=== PATIENT | female | born 1970 | race Caucasian/White ===

== ENCOUNTER 2022-06-25 14:13 | Emergency (ER) | payer SELFPAY ==
[~2022-06-25] VITALS: Ht 167.6 cm; Wt 58.9 kg
[2022-06-25] MEDS ORDERED: ALBUTEROL SUL0.083 % IN (14:29)
[2022-06-25] MEDS ORDERED: MEDDOSEPAK PO (20:46)
[2022-06-25] MEDS ORDERED: PROAIR HFA IN (20:46)
[2022-06-25] MEDS ORDERED: ZYRTEC10 MG PO (20:46)
[2022-06-25 20:48] VITALS: BP 124/67
== END 2022-06-25 20:54 | disposition home or self-care (01) | DRG 203 ==
LOC: ED 14:13
DX: J45.909 Unspecified asthma, uncomplicated (principal); Z20.822 Contact with and (suspected) exposure to COVID-19

== ENCOUNTER 2024-05-07 15:06 | Emergency (ER) | payer SELFPAY ==
[~2024-05-07] VITALS: Ht 167.6 cm; Wt 58.0 kg
[2024-05-07] VITALS (13 sets, daily range): BP systolic 108–139; BP diastolic 54–74
[~2024-05-07 15:06] MED LIST: ALBUTEROL SUL0.083 % IN; LORTAB 5/3255 MG PO; MEDDOSEPAK PO; PREDNISONE50 MG PO; PROAIR HFA IN; STERAPRED DS10 MG PO; TRAMADOL HCL50 MG PO; VENTOLIN HFA108 MCG PO; ZPAK PO; ZYRTEC10 MG PO
[2024-05-07] MEDS ORDERED: ASPIRIN 81 MG/TAB PO ONE (15:40)
[2024-05-07] MEDS ORDERED: ACETAMINOPHEN 325 MG/TAB PO ONE (15:40)
[2024-05-07 15:41] LABS: BASO% 0.9 % (0-3); EOS% 1.4 % (0-8); HEMATOCRIT 36.8 % (37.0-47.0); HEMOGLOBIN 12.3 g/dl (12.0-16.0); IMMATURE GRANULOCYTES 0.1 % (0.0-5.0); LYMPH% 7.8 % (15-41); MEAN CELL VOLUME 90.4 fL CALC (80.0-100.0); MEAN CORPUSCULAR HGB 30.2 pG CALC (26.0-32.0); MEAN CORPUSCULAR HGB CONC 33.4 g/dL CAL (32.0-36.0); MONO% 23.8 % (2-13); NEUT# 4.57 thou/uL (2.00-7.15); RED BLOOD COUNT 4.07 mill/uL (4.20-5.60); RED CELL DISTRI WIDTH 12.7 % (11.5-15.5)
[2024-05-07 15:53] LABS: ALBUMIN 4.3 g/dL (3.2-5.0); ALKALINE PHOSPHATASE 66 u/l (38-126); ANION GAP 11 (6-22 (CALC)); BILIRUBIN, TOTAL 0.4 mg/dL (0.02-1.3); BUN 11 mg/dL (7-17); BUN/CREATININE RATIO 20 (12-20 (CALC)); CARBON DIOXIDE 22 mmol/l (22-30); CHLORIDE 105 mmol/l (95-108); CREATININE 0.6 mg/dL (0.5-1.0); ESTIMATED GFR 107 ML/MIN (>=90 (CALC)); POTASSIUM 3.2 mmol/l (3.5-5.1); SGOT/AST 26 u/l (14-36); SODIUM 135 mmol/l (137-146); TOTAL PROTEIN 6.9 g/dL (6.3-8.2)
[2024-05-07] MEDS ORDERED: POTASSIUM CHLORIDE 20 MEQ/TAB PO ONE (17:20)
[2024-05-07 17:59] LABS: URINE BILIRUBIN - DIPSTICK Negative (NEGATIVE); URINE BLOOD DIPSTICK Large (NEGATIVE); URINE GLUCOSE - DIPSTICK Negative (NEGATIVE); URINE KETONE Negative (NEGATIVE); URINE LEUK ESTERASE Negative (NEGATIVE); URINE NITRITE - DIPSTICK Negative (Negative); URINE PROTEIN - DIPSTICK Negative (NEG-TRACE); URINE UROBILINOGEN - DIPSTICK 0.2 E.U./dL (0.2)
[2024-05-07 18:00] LABS: URINE COLOR Yellow
[2024-05-07 18:07] LABS: URINE BACTERIA FEW hpf; URINE SQUAMOUS EPITHELIAL CELL FEW EPI/hpf (0-FEW); URINE WBC 0-2 WBC/hpf (0-5)
[2024-05-07] MEDS ORDERED: AZELASTINE HYDR1 SPR (18:34)
[2024-05-07] MEDS ORDERED: ZPAK PO (18:34)
[2024-05-07] MEDS ORDERED: BENZONATATE200 MG PO (18:34)
[2024-05-07] MEDS ORDERED: LEVOCETIRIZINE D5 MG PO (18:34)
[2024-05-07] MEDS ORDERED: predniSONE 20 MG/TAB PO ONE (18:45)
[2024-05-07] MEDS ORDERED: AZITHROMYCIN 250 MG/TAB PO ONE (18:45)
== END 2024-05-07 19:02 | disposition home or self-care (01) | DRG 153 ==
LOC: ED 15:06
PROVIDERS: Nurse Practitioner
DX: J06.9 Acute upper respiratory infection, unspecified (principal); J45.909 Unspecified asthma, uncomplicated; F17.200 Nicotine dependence, unspecified, uncomplicated; Z20.822 Contact with and (suspected) exposure to COVID-19

== ENCOUNTER 2024-07-28 23:41 | Emergency (ER) | payer SELFPAY ==
[~2024-07-28] VITALS: Ht 167.6 cm; Wt 56.2 kg
[~2024-07-28 23:41] MED LIST changes: +AZELASTINE HYDR1 SPR; +BENZONATATE200 MG PO; +LEVOCETIRIZINE D5 MG PO
[2024-07-28] MEDS ORDERED: FLUORESCEIN SODIUM 1 MG EA OU ONE (23:55)
[2024-07-28] MEDS ORDERED: TETRACAINE HCL 0.5 %/4 ML SOL OU ONE (23:55)
[2024-07-29] MEDS ORDERED: traMADol HCL 50 MG/TAB PO ONE (00:05)
[2024-07-29] MEDS ORDERED: DICLOFENAC SODIUM 75 MG/TAB PO ONE (00:05)
[2024-07-29] MEDS ORDERED: ACETAMINOPHEN 500 MG TAB PO ONE (00:05)
[2024-07-29] MEDS ORDERED: DOXYCYCLINE HYCLATE 100 MG/CAP PO ONE (00:05)
[2024-07-29] MEDS ORDERED: VIBRAMYCIN100 M2 PO (00:07)
[2024-07-29] MEDS ORDERED: TRAMADOL HYDROC50 M1 PO (00:07)
[2024-07-29 00:33] VITALS: BP 126/78
== END 2024-07-29 00:33 | disposition home or self-care (01) | DRG 603 ==
LOC: ED 23:41
DX: L03.213 Periorbital cellulitis (principal); J45.909 Unspecified asthma, uncomplicated; Z72.0 Tobacco use

== ENCOUNTER 2024-07-31 12:57 | Emergency (ER) | payer SELFPAY ==
[2024-07-31] VITALS (8 sets, daily range): BP systolic 120–156; BP diastolic 49–89
[~2024-07-31] VITALS: Ht 167.6 cm; Wt 54.0 kg
[~2024-07-31 12:57] MED LIST changes: +TRAMADOL HYDROC50 M1 PO; +VIBRAMYCIN100 M2 PO
[2024-07-31] MEDS ORDERED: HYDROmorphone HCL 2 MG/AMP IV ONE (13:50)
[2024-07-31] MEDS ORDERED: SODIUM CHLORIDE 0.9% 1,000 ML IV ONE (13:50)
[2024-07-31] MEDS ORDERED: ONDANSETRON HCl 4 MG/2 ML SDV IV ONE (13:50)
[2024-07-31] MEDS ORDERED: TETRACAINE HCL 0.5 %/4 ML SOL OS ONE (13:50)
[2024-07-31 14:29] LABS: BASO% 0.6 % (0-3); EOS% 1.8 % (0-8); HEMATOCRIT 39.2 % (37.0-47.0); HEMOGLOBIN 13.2 g/dl (12.0-16.0); IMMATURE GRANULOCYTES 0.2 % (0.0-5.0); LYMPH% 17.6 % (15-41); MEAN CELL VOLUME 90.3 fL CALC (80.0-100.0); MEAN CORPUSCULAR HGB 30.4 pG CALC (26.0-32.0); MEAN CORPUSCULAR HGB CONC 33.7 g/dL CAL (32.0-36.0); MONO% 10.4 % (2-13); NEUT# 7.04 thou/uL (2.00-7.15); NEUT% 69.4 % (42-76); RED BLOOD COUNT 4.34 mill/uL (4.20-5.60); RED CELL DISTRI WIDTH 12.2 % (11.5-15.5)
[2024-07-31] MEDS ORDERED: FLUORESCEIN SODIUM 1 MG EA OS ONE (14:40)
[2024-07-31] MEDS ORDERED: AMPICILLIN & SULBACTAM SODIUM 3 GM in SODIUM CHLORIDE 0.9% 100 ML IV ONE (14:40)
[2024-07-31 14:43] LABS: CREATININE 0.6 mg/dL (0.5-1.0); TOTAL PROTEIN 6.5 g/dL (6.3-8.2)
[2024-07-31 14:59] LABS: BILIRUBIN, TOTAL 0.6 mg/dL (0.02-1.3)
[2024-07-31] MEDS ORDERED: ACYCLOVIR SODIUM 1,000 MG VIAL IV ONE (15:05)
[2024-07-31] MEDS ORDERED: ACYCLOVIR SODIUM 500 MG in SODIUM CHLORIDE 0.9% 100 ML IV SCH (15:30)
[2024-07-31] MEDS ORDERED: KETOROLAC TROMETHAMINE 30 MG/ML SDV IV ONE (16:40)
[2024-07-31] MEDS ORDERED: HYDROcodone/Acetaminophen 1 COMBO TAB PO ONE (16:40)
[2024-07-31] MEDS ORDERED: LORTAB 5/3255 MG PO (17:14)
[2024-07-31] MEDS ORDERED: ACYCLOVIR800 MG PO (17:14)
[2024-07-31] MEDS ORDERED: TRIFLURIDINE 1% OS (17:30)
[2024-07-31] MEDS ORDERED: ERYTHROMYCIN O3.5 GM OS (17:30)
== END 2024-07-31 17:46 | disposition home or self-care (01) | DRG 125 ==
LOC: ED 12:57
PROVIDERS: Family Medicine
DX: B02.30 Zoster ocular disease, unspecified (principal); J32.9 Chronic sinusitis, unspecified; J45.909 Unspecified asthma, uncomplicated; Z72.0 Tobacco use
CPT/HCPCS: J0133; J1171; J2405; Q9967